=== PATIENT | female | born 1935 | race Caucasian/White ===

== ENCOUNTER → 2018-01-02 | Outpatient (CLI) | payer MEDICARE, OTHER ==
[~2018-01-02] MED LIST: ACEBUTOLOL PO; ASA81 MG PO; CARVEDILOL12.5 MG PO; CLARITIN10 M3; POTASSIUM PO; PROPAFENONE PO; SPIRONOLACTONE25 MG PO; VERAPAMIL ER120 MG PO; Z.0.AMLODIPINE BESY1 PO; Z.0.DIOVAN320 MG PO; Z.0.HYDROCHLOROTH12. PO; Z.0.LEVOXYL50 MCG PO; Z.0.LIPITOR40 MG PO; Z.0.PLAVIX75 MG PO; [UNRECOGNIZED DRUG - CODE] PO; [UNRECOGNIZED DRUG - OTHER] PO; [UNRECOGNIZED DRUG - OTHER] PO; [UNRECOGNIZED DRUG - OTHER] PO
[2018-01-02 07:40] LABS: BASOPHILS # (AUTO) 0.1 (0.0-0.1); BASOPHILS % 0.7 % (0.0-1.0); EOSINOPHILS # (AUTO) 0.2 (0.0-0.4); EOSINOPHILS % 3.3 % (0.0-6.0); HEMOGLOBIN 13.2 g/dL (12.0-16.0); LYMPHOCYTES # (AUTO) 2.1 (1.0-3.2); LYMPHOCYTES % 28.5 % (18.0-39.1); MEAN CORPUSCULAR HEMOGLOBIN 31.7 pg (28-32); MEAN CORPUSCULAR HGB CONC 32.2 g/dL (31-35); MEAN CORPUSCULAR VOLUME 98.3 fL (81-99); MONOCYTES # (AUTO) 0.5 (0.2-0.8); MONOCYTES % 6.8 % (4.4-11.3); NEUTROPHILS # (AUTO) 4.3 (2.1-6.9); NEUTROPHILS % 60.1 % (38.7-80.0); PLATELET COUNT 182 x10e3/uL (140-360); RED BLOOD COUNT 4.17 x10e6/uL (3.6-5.1); RED CELL DISTRIBUTION WIDTH 13.3 % (11.7-14.4)
[2018-01-02 08:06] LABS: ALANINE AMINOTRANSFERASE 25 IU/L (0-55); ALBUMIN 3.6 g/dL (3.5-5.0); ALBUMIN/GLOBULIN RATIO 1.2 (0.8-2.0); ALKALINE PHOSPHATASE 66 IU/L (40-150); ANION GAP 13.1 mmol/L (8-16); BLOOD UREA NITROGEN 15 mg/dL (7-26); BUN/CREATININE RATIO 17 (6-25); CALCIUM 9.6 mg/dL (8.4-10.2); CARBON DIOXIDE 29 mmol/L (22-29); CHLORIDE 104 mmol/L (98-107); CHOL/HDL RATIO 4.1 (3.0-3.6); CHOLESTEROL 231 MD/DL (0-199); CREATINE KINASE 51 IU/L (29-168); CREATININE, SERUM 0.86 mg/dL (0.57-1.11); EST GLOMERULAR FILTRATION RATE > 60 ML/MIN (60-); GLUCOSE 132 mg/dL (74-118); HDL CHOLESTEROL 57 MG/DL (40-60); LDL CHOLESTEROL 145 MG/DL (60-130); POTASSIUM 5.1 mmol/L (3.5-5.1); SODIUM 141 mmol/L (136-145); TRIGLYCERIDES 147 MG/DL (0-149)
[2018-01-02 08:31] LABS: FREE T4 (FREE THYROXINE) 0.83 ng/dL (0.9-1.8); THYROID STIMULATING HORMONE 3.267 uIU/mL (0.350-4.940)
== END ==
LOC: LAB 07:15
PROVIDERS: ATTEND Internal Medicine Cardiovascular Disease
DX: I25.10 Atherosclerotic heart disease of native coronary artery without angina pectoris (principal); E78.5 Hyperlipidemia, unspecified; E03.9 Hypothyroidism, unspecified; I48.0 Paroxysmal atrial fibrillation; I49.5 Sick sinus syndrome
CPT/HCPCS: 36415; 80053; 80061; 82550; 83880; 84439; 84443; 85025

== ENCOUNTER → 2019-12-10 | Outpatient (CLI) | payer MEDICARE, OTHER ==
[~2019-12-10] MED LIST changes: +REGADENOSON 0.4 MG/5 ML SYR IV ONE
--- NOTE | 2019-12-10 17:05 | Myoview Stress Test ---
DATE OF STUDY: 12/10/2019 10:37:00 Stress Test - Treadmill ONLY PROCEDURE: Nuclear gated myocardial perfusion scan. Thank you, Dr. Umesh Gama for this nuclear stress test interpretation consultation. REPORT: Nuclear gated myocardial perfusion scan performed as per protocol at [facility] at [facility]. Lexiscan injected 0.4 mg intravenously. Myoview injected 10 millicuries for resting protocol and 30 millicuries for stress protocol. IMPRESSION: 1. Normal gated myocardial perfusion scan. No ischemia or scar noted. 2. Left ventricle ejection fraction 65%. 3. Normal study. I interpreted the nuclear part of the stress test. Stress test supervised by Dr. Umesh Gama. Wan Guy MD PVB/MODL /[id number]
== END ==
LOC: NM 10:24
PROVIDERS: ATTEND Internal Medicine Cardiovascular Disease
DX: I48.0 Paroxysmal atrial fibrillation (principal); I25.119 Atherosclerotic heart disease of native coronary artery with unspecified angina pectoris; I49.3 Ventricular premature depolarization; I48.3 Typical atrial flutter
CPT/HCPCS: 78452; 93017; A9502; J2785

== ENCOUNTER 2021-02-08 17:56 | Emergency (ER) | payer MEDICARE, OTHER ==
[~2021-02-08] VITALS: Ht 157.5 cm; Wt 86.2 kg
[~2021-02-08 17:56] MED LIST changes: -REGADENOSON 0.4 MG/5 ML SYR IV ONE
[2021-02-08] MEDS ORDERED: CASIRIVIMAB/IMDEVIMAB 10 ML in SODIUM CHLORIDE 0.9% 100 ML IV ONE (18:15)
== END 2021-02-08 21:30 | disposition home or self-care (01) ==
LOC: ER 18:15
DX: U07.1 COVID-19 (principal); Z88.1 Allergy status to other antibiotic agents; Z79.02 Long term (current) use of antithrombotics/antiplatelets; Z79.82 Long term (current) use of aspirin; Z95.0 Presence of cardiac pacemaker
CPT/HCPCS: J7050

== ENCOUNTER → 2021-06-18 | Day surgery (SDC) | payer MEDICARE, OTHER ==
[2021-06-16 13:56] LABS: BASOPHILS # (AUTO) 0.1 (0.0-0.1); BASOPHILS % 0.7 % (0.0-1.0); EOSINOPHILS # (AUTO) 0.3 (0.0-0.4); EOSINOPHILS % 3.5 % (0.0-6.0); HEMATOCRIT 38.7 % (34.2-44.1); HEMOGLOBIN 11.7 g/dL (12.0-16.0); LYMPHOCYTES # (AUTO) 2.6 (1.0-3.2); LYMPHOCYTES % 28.8 % (18.0-39.1); MEAN CORPUSCULAR HEMOGLOBIN 31.5 pg (28-32); MEAN CORPUSCULAR HGB CONC 30.2 g/dL (31-35); MONOCYTES # (AUTO) 0.5 (0.2-0.8); MONOCYTES % 5.1 % (4.4-11.3); NEUTROPHILS # (AUTO) 5.4 (2.1-6.9); NEUTROPHILS % 61.3 % (38.7-80.0); PLATELET COUNT 260 x10e3/uL (140-360); RED BLOOD COUNT 3.72 x10e6/uL (3.6-5.1); RED CELL DISTRIBUTION WIDTH 14.6 % (11.7-14.4)
[2021-06-16 14:21] LABS: ALBUMIN 3.9 g/dL (3.5-5.0); ALBUMIN/GLOBULIN RATIO 1.2 (0.8-2.0); ANION GAP 16.1 mmol/L (8-16); CALCIUM 9.5 mg/dL (8.4-10.2); CREATININE, SERUM 1.2 mg/dL (0.57-1.11)
[2021-06-16 14:41] LABS: POTASSIUM 6.1 mmol/L (3.5-5.1)
[2021-06-18] VITALS (8 sets, daily range): BP systolic 107–146; BP diastolic 48–86
[~2021-06-18] VITALS: Ht 157.5 cm; Wt 87.5 kg
[~2021-06-18] MED LIST changes: +AZO CRANBERRY1 EACH PO; +BIOTIN10 MG PO; +CARVEDILOL3.125 MG PO; +DILTIAZEM HCL30 MG PO; +ELIQUIS5 MG PO; +FENTANYL CITRATE/PF 100MCG/2 ML INJ ONE; +IOPAMIDOL 370 MG/ML 200 ML INFUS..BTL INJ ONE; +LABETALOL HCL 20 ML ONE; +LIDOCAINE HCL 2% LOCAL 20 ML VIAL ONE; +LORAZEPAM INJ 2 MG/ML VIAL ONE; +MIDAZOLAM HCL 2 MG/2 ML VIAL ONE; +SODIUM CHLORIDE 0.9% 1000ML 1,000 ML ONE; +SODIUM CHLORIDE 0.9% 500ML 1,000 ML ONE; +SODIUM CHLORIDE 0.9% 50ML 50 ML ONE; +SUPER B MAXI C0.4 MG PO; +VITAMIN B-121000 MCG PO; +VITAMIN C1000 MG PO; +Vancomycin IV 1 GM VIAL ONE; +[UNRECOGNIZED DRUG - OTHER] PO
[2021-06-18 10:28] LABS: INR 1.67
[2021-06-18 10:40] LABS: CALCIUM 9.5 mg/dL (8.4-10.2); CREATININE, SERUM 0.89 mg/dL (0.57-1.11)
== END | disposition home or self-care (01) ==
LOC: CATH LAB 09:24
PROVIDERS: ATTEND Internal Medicine Cardiovascular Disease
DX: I49.5 Sick sinus syndrome (principal); I25.10 Atherosclerotic heart disease of native coronary artery without angina pectoris; E78.5 Hyperlipidemia, unspecified; Z11.59 Encounter for screening for other viral diseases; I48.0 Paroxysmal atrial fibrillation; I67.2 Cerebral atherosclerosis; I65.29 Occlusion and stenosis of unspecified carotid artery; I11.9 Hypertensive heart disease without heart failure; Z86.73 Personal history of transient ischemic attack (TIA), and cerebral infarction without residual deficits; Z01.812 Encounter for preprocedural laboratory examination; Z20.822 Contact with and (suspected) exposure to COVID-19; Z88.6 Allergy status to analgesic agent; Z88.8 Allergy status to other drugs, medicaments and biological substances; Z91.048 Other nonmedicinal substance allergy status; Z79.02 Long term (current) use of antithrombotics/antiplatelets; Z79.82 Long term (current) use of aspirin; Z79.899 Other long term (current) drug therapy
CPT/HCPCS: 33228; 36415 ×2; 80048; 80053; 85025; 85610; C1785; J0690; J2001; J2060; J2250; J3010; J3370; J3490; J7030; J7040; U0002; 99152; 99153; Q9967